=== PATIENT | male | born 1960 | race Caucasian/White ===

== ENCOUNTER 2019-08-10 07:17 | Inpatient (IN) | payer BC, SELFPAY ==
[~2019-08-10] VITALS: Ht 167.6 cm; Wt 81.6 kg
[2019-08-10 07:17] VITALS: BP_SYST 130
--- NOTE | 2019-08-10 07:54 | NUR ---
ambulated to ed #5
[2019-08-10] MEDS ORDERED: ALBUTEROL SULFATE 0.083% 2.5 MG/3 ML VIAL.NEB INH ONE (08:15)
--- NOTE | 2019-08-10 08:26 | NUR ---
PT A WALK IN FROM HOME. PT STATED HE IS COVID 19 POSTIVE TESTED [place] [facility] [place]. HIS PMD HAS HIM ON LEVOQUIN. PT WAS FEELING SOB WITH COUGH. 02 SAT ON RA IS 94-95%. RT IS GIVEN PT BREATHING TX NOW. O2 SAT IS 100%
[2019-08-10 08:40] LABS: BASOPHILS % (AUTO) 0.2 % (0.0-2.0); EOSINOPHILS % (AUTO) 0.2 % (0.0-4.0); HEMATOCRIT 44.7 % (36-54); HEMOGLOBIN 15.4 g/dL (14.0-18.0); LYMPHOCYTES # (AUTO) 3.5 K/uL (1.0-5.5); LYMPHOCYTES % (AUTO) 34.1 % (20.5-51.5); MEAN CORPUSCULAR HEMOGLOBIN 30 pg (27-31); MEAN CORPUSCULAR HGB CONC 35 % (32-36); MEAN CORPUSCULAR VOLUME 86 fL (79.0-98.0); MONOCYTES # (AUTO) 0.5 K/uL (0.0-1.0); MONOCYTES % (AUTO) 4.9 % (1.7-9.3); NEUTROPHILS # (AUTO) 6.1 K/uL (1.8-7.7); NEUTROPHILS % (AUTO) 60.6 % (40.0-70.0); PLATELET COUNT (AUTO) 158 K/uL (130-430); RED CELL DISTRIBUTION WIDTH 13.3 % (9.0-15.0); WHITE BLOOD COUNT (AUTO) 10.2 K/uL (4.8-10.8)
[2019-08-10 08:53] LABS: INR 1.1 (0.80-1.20)
--- NOTE | 2019-08-10 09:11 | NUR ---
PT HAS RECEIVED BREATHING TX. HOB IS AT 45 DEGREES . PT HAS N95 MASK ON GIVEN BY RN. AWAITING ALL LAB REPORTS AND ADDITIONAL MD ORDERS.
[2019-08-10 09:18] LABS: CALCIUM 8.6 mg/dL (8.4-11.0); CREATININE 1.23 mg/dL (0.55-1.30); POTASSIUM 3.5 mmol/L (3.5-5.1)
[2019-08-10 09:23] LABS: TOTAL BILIRUBIN 0.7 mg/dL (0.0-1.0)
[2019-08-10] MEDS ORDERED: NACL 0.9% 1,000 ML IV ONE (09:30)
[2019-08-10] MEDS ORDERED: ACETAMINOPHEN 500 MG TABLET PO ONE (09:30)
[2019-08-10] MEDS ORDERED: KETOROLAC TROMETHAMINE 30 MG VIAL IVP ONE (09:30)
--- NOTE | 2019-08-10 09:51 | NUR ---
IV ACCESS TO THE RIGHT AC IN ONE ATTEMPT WITH 20G.
--- NOTE | 2019-08-10 09:56 | NUR ---
O2 IS 95% ON RA . ER MD WANTS TO CALL PMD FOR ADMISSION FOR COVID PNA.
--- NOTE | 2019-08-10 10:10 | NUR ---
Patient admission orders received from Dr. West via phone. Orders entered by JUAN.
[2019-08-10] MEDS ORDERED: POTASSIUM CHLORIDE 20 MEQ/PKT PACKET PO ONE (10:15)
--- NOTE | 2019-08-10 10:30 | NUR ---
PAIN IN THE LUNGS IS IMPROVED TO 3/10. TORADOL AND TYLENOL GIVEN EARLIER. EFFECTIVE.
--- NOTE | 2019-08-10 11:17 | NUR ---
REMDESIVIR , AWAITING PHARMACY APPROVAL. ARLENE IN PHARMACY STATED SHE MUST CALL ID AND HER DIRECTOR FOR APPROVAL OF THIS DRUG.
--- NOTE | 2019-08-10 13:05 | NUR ---
RENDEZIMIR HAS STARTED, NOW THAT PHARMACY HAS APPROVED. RN NOTES THAT HR IS DOWN TO 89 AND O2 SATURATION IS IMPROVED TO 97% WITH A N95 MASK.
--- NOTE | 2019-08-10 14:10 | NUR ---
PT CONTINUES TO HOLD IN ER. RENDEZIMIR STILL INFUSING. O2 SATURATION RA 95%
--- NOTE | 2019-08-10 14:39 | NUR ---
O2 SATURATION GOES UP TO 96% ON RA WITH N95. PT IS MORE RELAXED.
--- NOTE | 2019-08-10 15:50 | NUR ---
PT CONTINUES TO HOLD IN ER. TELE ADMIT WITH COVID 19 AND PNA. PT IS SATURATING % ON RA AND IS RESTING WELL IN THE GURNEY.
[2019-08-10] MEDS ORDERED: IBRU280T PO (16:58)
[2019-08-10] MEDS ORDERED: ESCI10TA PO (16:58)
--- NOTE | 2019-08-10 17:07 | NUR ---
O2 SATURATION IS UP TO 96%. PT IS STABLE. AWAITING TELEMETRY BED.
[2019-08-10] MEDS ORDERED: DECADRON 4 MG TABLET PO ONE (17:45)
[2019-08-10] MEDS ORDERED: AZITHROMYCIN 500 MG in NS 250 ML IV SCH (18:30)
--- NOTE | 2019-08-10 18:37 | NUR ---
PT GIVEN COMMODE FOR BOWEL MOVEMENT. PT IS STABLE AND AWAITING TELE BED. O2 SAT ON RA IS 96%.
--- NOTE | 2019-08-10 19:10 | NUR ---
Report recieved from JUAN Laws for continuation of care.
--- NOTE | 2019-08-10 19:45 | NUR ---
Pt eating dinner, AxOx4, no complaints at this time.
--- NOTE | 2019-08-10 20:15 | NUR ---
As per JUAN Laws medications prior to 1900 were given.
[2019-08-10] MEDS: CHOLECALCIFEROL (VITAMIN D3) 2,000 UNIT TABLET PO SCH (22:03)
[2019-08-10] MEDS: MAGNESIUM OXIDE 400 MG TABLET PO SCH (22:03)
[2019-08-10] MEDS: FAMOTIDINE 20 MG TABLET PO SCH (22:03)
[2019-08-10] MEDS: ASCORBIC ACID 500 MG TABLET PO SCH (22:03)
--- NOTE | 2019-08-10 22:04 | NUR ---
notified of patients oral temp 102.5, Tylenol 650mg PO ordered.
[2019-08-10] MEDS ORDERED: ACETAMINOPHEN 325 MG TABLET PO PRN (22:45)
[2019-08-10] MEDS ORDERED: ACETAMINOPHEN 325 MG TABLET ONE (23:02)
--- NOTE | 2019-08-11 | NUR ---
Pt resting, symmetric chest rise and fall. No complaints at this time.
[2019-08-11] MEDS ORDERED: PIPERACILLIN/TAZOBACTAM 3.375 GM/VIAL (ZOSYN) IV ONE ×4 (00:31→18:56)
[2019-08-11] MEDS: PIPERACILLIN/TAZO 3.375/DEX-IS 50 ML IV SCH ×4 (00:36→18:00)
--- NOTE | 2019-08-11 02:27 | NUR ---
Pt AxOx3, pt waiting for tele bed. No complaints at this time.
--- NOTE | 2019-08-11 03:26 | NUR ---
Pt had bowel movement at bedside commode. New urinal and commode liner placed. Pt has no complaints.
[2019-08-11 04:57] LABS: BASOPHILS % (AUTO) 0.3 % (0.0-2.0); EOSINOPHILS # (AUTO) 0.1 K/uL (0.0-0.4); EOSINOPHILS % (AUTO) 0.8 % (0.0-4.0); HEMATOCRIT 40.6 % (36-54); HEMOGLOBIN 13.9 g/dL (14.0-18.0); LYMPHOCYTES # (AUTO) 2.9 K/uL (1.0-5.5); LYMPHOCYTES % (AUTO) 35.8 % (20.5-51.5); MEAN CORPUSCULAR HEMOGLOBIN 30 pg (27-31); MEAN CORPUSCULAR HGB CONC 34 % (32-36); MEAN CORPUSCULAR VOLUME 88 fL (79.0-98.0); MONOCYTES # (AUTO) 0.5 K/uL (0.0-1.0); MONOCYTES % (AUTO) 6.6 % (1.7-9.3); NEUTROPHILS # (AUTO) 4.6 K/uL (1.8-7.7); NEUTROPHILS % (AUTO) 56.5 % (40.0-70.0); PLATELET COUNT (AUTO) 135 K/uL (130-430); RED BLOOD CELL COUNT(AUTO) 4.63 MIL/uL (4.2-6.2); RED CELL DISTRIBUTION WIDTH 13.1 % (9.0-15.0); WHITE BLOOD COUNT (AUTO) 8.2 K/uL (4.8-10.8)
[2019-08-11 05:15] LABS: ALBUMIN 2.6 g/dL (3.4-4.8); CREATININE 0.89 mg/dL (0.55-1.30); POTASSIUM 3.8 mmol/L (3.5-5.1); TOTAL BILIRUBIN 0.5 mg/dL (0.0-1.0)
--- NOTE | 2019-08-11 05:30 | NUR ---
Pt resting, symmetric chest rise and fall. No complaints at this time.
--- NOTE | 2019-08-11 06:36 | NUR ---
Pt AxOx3, no respiratory distress. No new complaints. Zoysn started ay 0636.
--- NOTE | 2019-08-11 07:00 | NUR ---
Assumed care of patient, report received from JUAN Bradshaw. Pt currently resting in bed, v/s stable. Diet tray ordered. Contacted pharmacy for daily medications.
[2019-08-11] MEDS: AZITHROMYCIN 500 MG in NS 250 ML IV SCH (09:03)
[2019-08-11] MEDS: CHOLECALCIFEROL (VITAMIN D3) 2,000 UNIT TABLET PO SCH ×2 (09:04→21:38)
[2019-08-11] MEDS: MAGNESIUM OXIDE 400 MG TABLET PO SCH ×2 (09:04→21:37)
[2019-08-11] MEDS: DECADRON 4 MG TABLET PO SCH ×3 (09:04→21:37)
[2019-08-11] MEDS ORDERED: AZITHROMYCIN 500 MG/VIAL (ZITHROMAX) IV ONE (09:04)
[2019-08-11] MEDS: FAMOTIDINE 20 MG TABLET PO SCH ×2 (09:04→21:37)
[2019-08-11] MEDS: ASCORBIC ACID 500 MG TABLET PO SCH ×2 (09:04→21:37)
[2019-08-11] MEDS: CITALOPRAM HYDROBROMIDE 20 MG TABLET PO SCH (09:06)
--- NOTE | 2019-08-11 15:14 | NUR ---
Patient will be admitted to care of Dr. West. Admitted to Tele unit. Will go to room 123B. Belongings list completed. Complete and up to date summary report printed. SBAR report to be given at bedside with opportunity for questions. IV patent, antiobiotics currently infusing.
--- NOTE | 2019-08-11 15:35 | NUR ---
ADMIT NOTE Received pt from ER to the floor with a diagnosis of COVID PNA. Admission process initiated. patient oriented to pain management, safety and call light-teach back done.
--- NOTE | 2019-08-11 15:38 | NUR ---
BELONGINGS/ MEDICATIONS MEDICATIONS NOT BROUGHT TO PHARM DUE TO CONTAMINATION OF COVID. VERBALIZED TO PT NOT TO TAKE MEDICATIONS AND PHARM WILL PROVIDE MEDICATIONS, PT VERBALIZED UNDERSTANDING.
--- NOTE | 2019-08-11 15:38 | NUR ---
CONSULTATION PAGED REASON FOR CONSULTATION:COVID-19, PNA WAS CONSULT CALLED?T PERSON WHO WAS NOTIFIED:SREE CONSULTING PHYSICIAN:ZACHARY MATTHEWS SPECIAL EDUCATION SECRETARY SPECIALTY:INFECTIOUS DIESASE SPECIAL EDUCATION SECRETARY PHONE NUMBER:[phone] REQUESTING PHYSICIAN:JEFF DALLAS
--- NOTE | 2019-08-11 16:00 | NUR ---
PT ASKED WHY MEDICATION IMBRUVICA WAS BEING HELD. SPOKE TO DR. DELONG REGARDING PT'S HOME MED IMBRUVICA, MEDICATION CAN DECREASE WBC. NO NEW ORDERS RECEIVED.
[2019-08-11 16:23] VITALS: BP_SYST 153
--- NOTE | 2019-08-11 18:45 | NUR ---
CLOSING NOTES/ MEDICATION MEDICATION ADMINISTERED ORDERED PER MD, EDUCATION GIVEN, TOLERATED WELL. PT AWAKE, ALERT, AND ORIENTED. EATING DINNER SITTING UP, HOB ELEVATED. PT HAS DRY COUGH. NO ACUTE DISTRESS NOTED. IV LINE INTACT AND PATENT, NO SIGNS OF INFILTRATION NOTED. BED LOCKED AND IN LOWEST POSITION. ALL NEEDS MET. CALL LIGHT IN REACH. FALL AND ASPIRATION AND ISOLATION PRECAUTIONS IN PLACE. WILL ENDORSE TO NOC NURSE.
[2019-08-11 19:25] LABS: BILIRUBIN,URINE NEGATIVE (NEGATIVE); BLOOD, URINE NEGATIVE (NEGATIVE); CLARITY/URINE CLEAR (CLEAR); COLOR,URINE YELLOW (YELLOW); GLUCOSE,URINE NEGATIVE (NEGATIVE); KETONES,URINE TRACE (NEGATIVE); LEUKOCYTE ESTERASE ,URINE NEGATIVE (NEGATIVE); NITRITE, URINE NEGATIVE (NEGATIVE); PROTEIN URINE NEGATIVE (NEGATIVE); UROBILINOGEN,URINE 0.2 (0.2-1.0)
--- NOTE | 2019-08-11 19:30 | NUR ---
CHANGE OF SHIFT; pt. resting when received., talked thru phone communication, denies any discomfort at this time. still with occ. bouts of non productive cough. on contact isolation fro Covid. instructed to call for help and verbalized understanding.
--- NOTE | 2019-08-11 20:30 | NUR ---
NOTES: pt. resting and watching tv. when checked. call light at bedside.
[2019-08-11 21:15] VITALS: BP_SYST 147
--- NOTE | 2019-08-11 21:40 | NUR ---
NOTES: due po meds taken. IV tko via rt. antecubital. repositioned self for comfort. pt. instructed on how to unplug IV cable whenever he wants to go restroom. on drupal web developer and shows sinus rhythm.
--- NOTE | 2019-08-11 23:41 | NUR ---
NOTES: IV pump keeps alarming, rechecked site, flushed and re tape with transparent dressing.
--- NOTE | 2019-08-12 00:30 | NUR ---
NOTES: IV disconnected after IV antibiotic, pt. could not sleep, keeps alarming. needs attended. call light within reach. cardiac pattern unchanged.
--- NOTE | 2019-08-12 02:38 | NUR ---
NOTES: pt. sleeping when checked. no complaints manifested. call light within reach.
--- NOTE | 2019-08-12 05:04 | NUR ---
NOTES; pt. still asleep. no distress. continue to monitor. call light at bedside.
[2019-08-12 06:00] VITALS: BP_SYST 158
--- NOTE | 2019-08-12 06:00 | NUR ---
NOTES: pt. sleeping and awakened for IV antibiotic. no complaints noted except being chilly, did not call for blanket, repositioned self for comfort.
[2019-08-12] MEDS: PIPERACILLIN/TAZO 3.375/DEX-IS 50 ML IV SCH ×2 (06:10)
--- NOTE | 2019-08-12 07:15 | NUR ---
OPENING NOTES PT AWAKE, ALERT, AND ORIENTED. WATCHING TV IN BED, HOB ELEVATED. IV LINE INTACT AND PATENT, NO SIGNS OF INFILTRATION NOTED. NO ACUTE DISTRESS NOTED. BED LOCKED AND IN LOWEST POSITION. ALL NEEDS MET. CALL LIGHT IN REACH. FALL AND ASPIRATION AND ISOLATION PRECAUTIONS IN PLACE. CONTINUE TO MONITOR.
[2019-08-12 08:00] VITALS: BP_SYST 142
[2019-08-12] MEDS: FAMOTIDINE 20 MG TABLET PO SCH ×2 (09:32→21:00)
[2019-08-12] MEDS: ASCORBIC ACID 500 MG TABLET PO SCH ×2 (09:32→21:00)
[2019-08-12] MEDS: AZITHROMYCIN 500 MG in NS 250 ML IV SCH (09:32)
[2019-08-12] MEDS: DECADRON 4 MG TABLET PO SCH (09:32)
[2019-08-12] MEDS: CHOLECALCIFEROL (VITAMIN D3) 2,000 UNIT TABLET PO SCH ×2 (09:32→21:00)
[2019-08-12] MEDS: CITALOPRAM HYDROBROMIDE 20 MG TABLET PO SCH (09:32)
[2019-08-12] MEDS: MAGNESIUM OXIDE 400 MG TABLET PO SCH ×2 (09:32→21:00)
--- NOTE | 2019-08-12 09:32 | NUR ---
ROUTINE MEDS HOB ELEVATED, PT SITTING UP IN BED EATING BREAKFAST. ROUTINE MEDS ADMINISTERED ORDERED PER MD, EDUCATION GIVEN, TOLERATED WELL, PT VERBALIZED UNDERSTANDING. NO ACUTE DISTRESS NOTED. ALL NEEDS MET. CALL LIGHT IN REACH. FALL AND ASPIRATION AND ISOLATION PRECAUTIONS IN PLACE. CONTINUE TO MONITOR.
--- NOTE | 2019-08-12 11:00 | NUR ---
ROUNDS PT AWAKE, ALERT, AND ORIENTED. WATCHING TELEVISION IN BED. NO ACUTE DISTRESS NOTED. ALL NEEDS MET. CALL LIGHT IN REACH. CONTINUE TO MONITOR.
[2019-08-12 11:30] LABS: ALBUMIN 2.6 g/dL (3.4-4.8); BILIRUBIN,DIRECT 0.2 mg/dL (0.0-0.3); CREATININE 1.16 mg/dL (0.55-1.30); TOTAL BILIRUBIN 0.5 mg/dL (0.0-1.0)
[2019-08-12 12:00] VITALS: BP_SYST 147
[2019-08-12] MEDS ORDERED: ENOXAPARIN SODIUM 40 MG/0.4 ML SYRINGE SUBCUT ONE (12:00)
--- NOTE | 2019-08-12 12:25 | NUR ---
Dietitian Recommendations *Recommend Ensure Clear BID. ONS will provide additional 480 kcal and 16gm protein daily. *Continue regular diet. Please see Nutritional Assessment for details. KATARINA, SAMANTHA
[2019-08-12] MEDS: cefTRIAXone 1 GM in D5W 50 ML IV SCH (12:34)
--- NOTE | 2019-08-12 12:34 | NUR ---
ROUTINE MEDS AND LUNCH GIVEN ROUTINE MEDS ADMINISTERED ORDERED PER MD, EDUCATION GIVEN, PT VERBALIZED UNDERSTANDING, TOLERATED WELL. HOB ELEVATED, SITTING UP IN BED, EATING LUNCH, TOLERATING WELL. NO ACUTE DISTRESS NOTED. ALL NEEDS MET. CALL LIGHT IN REACH. CONTINUE TO MONITOR.
--- NOTE | 2019-08-12 14:23 | NUR ---
ROUNDS PT SITTING UP, WATCHING TV. NO ACUTE DISTRESS NOTED. ALL NEEDS MET. CALL LIGHT IN REACH. CONTINUE TO MONITOR.
[2019-08-12 16:00] VITALS: BP_SYST 160
--- NOTE | 2019-08-12 16:13 | NUR ---
ROUNDS PT SITTING UP IN BED, WATCHING TV. DRY COUGH NOTED. NO ACUTE DISTRESS NOTED. ALL NEEDS MET. CALL LIGHT IN REACH. CONTINUE TO MONITOR.
[2019-08-12] MEDS ORDERED: cloNIDine HCL 0.1 MG TABLET PO PRN (18:30)
--- NOTE | 2019-08-12 18:45 | NUR ---
CLOSING NOTES/ SEEN BY DR. SIMEON AND SPOKE TO DR. SIMEON PT AWAKE, ALERT, AND ORIENTED. WATCHING TV IN BED AND EATING DINNER, HOB ELEVATED. IV LINE INTACT AND PATENT, NO SIGNS OF INFILTRATION NOTED. NO ACUTE DISTRESS NOTED. PT HAS DRY COUGH. BED LOCKED AND IN LOWEST POSITION. ALL NEEDS MET. CALL LIGHT IN REACH. FALL AND ASPIRATION AND ISOLATION PRECAUTIONS IN PLACE. WILL ENDORSE TO NOC NURSE. SPOKE TO DR. SIMEON REGARDING PT'S ELEVATED BP, MD PUT IN PRN ORDERS FOR BP.
--- NOTE | 2019-08-12 19:45 | NUR ---
RECEIVED REPORT FROM JUAN HUTTON. SINUS RHYTHM ON THE TELE MONITOR. NO S/S OF DISTRESS AT THIS TIME, NO OTHER NEEDS AT THIS TIME, WILL CONTINUE TO MONITOR.
[2019-08-12 20:50] VITALS: BP_SYST 144
--- NOTE | 2019-08-12 21:00 | NUR ---
MEDICATIONS/ROUNDS Patient resting in bed, AAOx4, breathing evenly and nonlabored on room air. Patient's BP elevated at 144/92, denies any headaches, pain, s/s of high BP. Patient has an IV on the right AC 20g SL, flushed, patent and benign, no s/s of infiltration or infection noted at this time. Educated patient on plan of care, fall/safety/isolation precautions, call light system, patient stated understanding with return demonstration. Educated patient on due medications, patient stated understanding. Administered medications, patient tolerated them well. Bed is locked and at lowest position, will continue to monitor.
--- NOTE | 2019-08-12 22:00 | NUR ---
ROUNDS Patient resting in bed, awake, breathing evenly and nonlabored on room air. Educated patient regarding Covid test, patient stated understanding. Patient said he was tested on [facility] ([address]) back on 07/31/19 and tested positive. Covid test was done earlier, patient tolerated it well. No other needs at this time. Fall/safety/isolation precautions, will continue to monitor.
[2019-08-13 00:50] VITALS: BP_SYST 147
--- NOTE | 2019-08-13 00:50 | NUR ---
ROUNDS Patient resting in bed, awake, breathing evenly and nonlabored on room air. Patient's BP elevated at 147/94, denies any headaches, pain, s/s of high BP. Patient asked for some water which was provided. No other needs at this time. Fall/safety/isolation precautions, will continue to monitor.
--- NOTE | 2019-08-13 02:23 | NUR ---
SR ON THE TELE MONITOR, NO S/S OF DISTRESS AT THIS TIME, NO OTHER NEEDS AT THIS TIME, WILL CONTINUE TO MONITOR.
--- NOTE | 2019-08-13 04:15 | NUR ---
SR ON THE TELE MONITOR, NO S/S OF DISTRESS AT THIS TIME, NO OTHER NEEDS AT THIS TIME, WILL CONTINUE TO MONITOR THE PATIENT.
--- NOTE | 2019-08-13 06:20 | NUR ---
CLOSING NOTES Patient resting in bed, awake, breathing evenly and nonlabored on room air. Trash and linen basket emptied and replaced. No s/s of distress at this time, no other needs at this time. Needs met throughout the shift. Fall/safety/isolation precautions, will endorse care to morning shift RN.
--- NOTE | 2019-08-13 07:15 | NUR ---
OPENING NOTES PT AWAKE, ALERT, AND ORIENTED. IV LINE NOT PATENT, WILL RE-INSERT. NO ACUTE DISTRESS NOTED. BED LOCKED AND IN LOWEST POSITION. ALL NEEDS MET. CALL LIGHT IN REACH. FALL AND ASPIRATION AND ISOLATION PRECAUTIONS IN PLACE. CONTINUE TO MONITOR.
[2019-08-13 07:44] LABS: HEMATOCRIT 41.6 % (36-54); HEMOGLOBIN 14.1 g/dL (14.0-18.0); LYMPHOCYTES # (AUTO) 2.9 K/uL (1.0-5.5); LYMPHOCYTES % (AUTO) 28.5 % (20.5-51.5); MEAN CORPUSCULAR HEMOGLOBIN 30 pg (27-31); MEAN CORPUSCULAR HGB CONC 34 % (32-36); MEAN CORPUSCULAR VOLUME 87 fL (79.0-98.0); MONOCYTES # (AUTO) 0.5 K/uL (0.0-1.0); MONOCYTES % (AUTO) 4.8 % (1.7-9.3); NEUTROPHILS # (AUTO) 6.9 K/uL (1.8-7.7); NEUTROPHILS % (AUTO) 66.7 % (40.0-70.0); PLATELET COUNT (AUTO) 189 K/uL (130-430); RED BLOOD CELL COUNT(AUTO) 4.78 MIL/uL (4.2-6.2); RED CELL DISTRIBUTION WIDTH 13.2 % (9.0-15.0); WHITE BLOOD COUNT (AUTO) 10.3 K/uL (4.8-10.8)
[2019-08-13 08:00] VITALS: BP_SYST 148
[2019-08-13 08:16] LABS: ALBUMIN 2.6 g/dL (3.4-4.8); C-REACTIVE PROTEIN QUANT 3.5 mg/dL (0-0.5); CALCIUM 8.8 mg/dL (8.4-11.0); CREATININE 0.86 mg/dL (0.55-1.30); POTASSIUM 4.1 mmol/L (3.5-5.1); TOTAL BILIRUBIN 0.5 mg/dL (0.0-1.0)
--- NOTE | 2019-08-13 08:45 | NUR ---
ROUTINE MEDS ROUTINE MEDS ADMINISTERED ORDERED PER MD, EDUCATION GIVEN, TOLERATED WELL. NO ACUTE DISTRESS NOTED. ATTEMPTED IV RE-INSERTION. UNSUCCESSFUL AFTER TWO ATTEMPTS, WILL CALL ANOTHER RN WHEN AVAILABLE TO ATTEMPT. ALL NEEDS MET. CALL LIGHT IN REACH. CONTINUE TO MONITOR.
[2019-08-13] MEDS: FAMOTIDINE 20 MG TABLET PO SCH ×2 (09:00→20:38)
[2019-08-13] MEDS: ASCORBIC ACID 500 MG TABLET PO SCH ×2 (09:00→20:38)
[2019-08-13] MEDS: AZITHROMYCIN 500 MG in NS 250 ML IV SCH ×2 (09:00→11:00)
[2019-08-13] MEDS: DECADRON 4 MG TABLET PO SCH (09:00)
[2019-08-13] MEDS: MAGNESIUM OXIDE 400 MG TABLET PO SCH ×2 (09:00→20:38)
[2019-08-13] MEDS: CITALOPRAM HYDROBROMIDE 20 MG TABLET PO SCH (09:00)
[2019-08-13] MEDS: ENOXAPARIN SODIUM 40 MG/0.4 ML SYRINGE SUBCUT SCH (09:00)
[2019-08-13] MEDS: CHOLECALCIFEROL (VITAMIN D3) 2,000 UNIT TABLET PO SCH ×2 (09:00→20:38)
--- NOTE | 2019-08-13 11:00 | NUR ---
IV RE-INSERTION IV LINE UNABLE TO FLUSH. RESTARTED ON RIGHT AC 20G. Successful after 2 attempts. JUAN COX INSERTED THIRD SUCCESSFUL IV ATTEMPT. Resumed ZITHRO ABX MEDICATION. Will observe for any signs of infiltration.
[2019-08-13 12:00] VITALS: BP_SYST 125
--- NOTE | 2019-08-13 12:00 | NUR ---
GAVE PT LUNCH AND VITAL SIGNS TAKEN AND STABLE.
[2019-08-13] MEDS: cefTRIAXone 1 GM in D5W 50 ML IV SCH (14:00)
--- NOTE | 2019-08-13 14:00 | NUR ---
ROUTINE MEDS ADMINISTERED ORDERED PER MD, EDUCATION GIVEN, TOLERATED WELL. NO ACUTE DISTRESS NOTED. ALL NEEDS MET. CALL LIGHT IN REACH. CONTINUE TO MONITOR.
[2019-08-13 16:00] VITALS: BP_SYST 120
--- NOTE | 2019-08-13 16:00 | NUR ---
VITAL SIGNS TAKEN AND STABLE.
--- NOTE | 2019-08-13 18:45 | NUR ---
CLOSING NOTES PT AWAKE, ALERT, AND ORIENTED WATCHING TV IN BED. DRY COUGH NOTED. IV LINE INTACT AND PATENT, NO SIGNS OF INFILTRATION NOTED. NO ACUTE DISTRESS NOTED. BED LOCKED AND IN LOWEST POSITION. ALL NEEDS MET. CALL LIGHT IN REACH. FALL AND ASPIRATION AND ISOLATION PRECAUTIONS IN PLACE. WILL ENDORSE TO NOC NURSE.
--- NOTE | 2019-08-13 19:40 | NUR ---
RECEIVED REPORT FROM JUAN HUTTON. SINUS RHYTHM ON THE TELE MONITOR. NO S/S OF DISTRESS AT THIS TIME, NO OTHER NEEDS AT THIS TIME, WILL CONTINUE TO MONITOR THE PATIENT.
[2019-08-13 20:30] VITALS: BP_SYST 139
--- NOTE | 2019-08-13 20:38 | NUR ---
MEDICATIONS/ROUNDS Patient resting in bed, AAOx4, breathing evenly and nonlabored on room air. Vital signs stable. Patient has an IV on the right AC 20g SL, flushed, patent and benign, no s/s of infiltration or infection noted at this time. Educated patient on plan of care, fall/safety/isolation precautions, call light system, patient stated understanding with return demonstration. Educated patient on due medications, patient stated understanding. Administered medications, patient tolerated them well. Bed is locked and at lowest position, will continue to monitor.
--- NOTE | 2019-08-13 22:30 | NUR ---
SR ON THE TELE MONITOR, NO S/S OF DISTRESS AT THIS TIME, NO OTHER NEEDS AT THIS TIME, WILL CONTINUE TO MONITOR.
[2019-08-13] MEDS ORDERED: LOPERAMIDE HCL 2 MG CAPSULE PO ONE (23:00)
[2019-08-13] MEDS ORDERED: PROMETHAZINE-DM 6.25 MG-15 MG/5 ML UDC PO PRN (23:00)
--- NOTE | 2019-08-14 | NUR ---
MEDICATIONS/ROUNDS Patient resting in bed, awake, breathing evenly and nonlabored on room air. Vital signs stable. Was able to obtain medication orders from Dr. West earlier for diarrhea and for a cough suppressant. Educated patient on PRN medications, patient stated understanding. Patient chose to take Imodium for diarrhea, complained of 5 times loose stools 08/13/2019. Administered medication, patient tolerated it well. No other needs at this time. Fall/safety/isolation precautions, will continue to monitor.
[2019-08-14 00:01] VITALS: BP_SYST 142
--- NOTE | 2019-08-14 02:20 | NUR ---
SR ON THE TELE MONITOR, NO S/S OF DISTRESS AT THIS TIME, NO OTHER NEEDS AT THIS TIME, WILL CONTINUE TO MONITOR THE PATIENT.
--- NOTE | 2019-08-14 04:20 | NUR ---
SR ON THE TELE MONITOR, NO S/S OF DISTRESS AT THIS TIME, NO OTHER NEEDS AT THIS TIME, WILL CONTINUE TO MONITOR THE PATIENT.
--- NOTE | 2019-08-14 06:30 | NUR ---
CLOSING NOTES Patient resting in bed, eyes closed, breathing evenly and nonlabored on room air. No s/s of distress at this time, no other needs at this time. Needs met throughout the shift. Fall/safety/isolation precautions, will endorse care to morning shift RN.
--- NOTE | 2019-08-14 07:45 | NUR ---
OPENING NOTES PT AWAKE, ALERT, AND ORIENTED. IV LINE INTACT AND PATENT, NO SIGNS OF INFILTRATION NOTED. NONLABORED BREATHING NOTED ON ROOM AIR, DRY COUGH NOTED. NO ACUTE DISTRESS NOTED. BED LOCKED AND IN LOWEST POSITION. ALL NEEDS MET. CALL LIGHT IN REACH. FALL AND ASPIRATION AND ISOLATION PRECAUTIONS IN PLACE. CONTINUE TO MONITOR.
[2019-08-14 08:00] VITALS: BP_SYST 149
[2019-08-14] MEDS: AZITHROMYCIN 500 MG in NS 250 ML IV SCH (08:26)
[2019-08-14] MEDS: ASCORBIC ACID 500 MG TABLET PO SCH (08:26)
[2019-08-14] MEDS: CHOLECALCIFEROL (VITAMIN D3) 2,000 UNIT TABLET PO SCH (08:26)
[2019-08-14] MEDS: MAGNESIUM OXIDE 400 MG TABLET PO SCH (08:26)
[2019-08-14] MEDS: DECADRON 4 MG TABLET PO SCH (08:26)
[2019-08-14] MEDS: FAMOTIDINE 20 MG TABLET PO SCH (08:26)
[2019-08-14] MEDS: CITALOPRAM HYDROBROMIDE 20 MG TABLET PO SCH (08:26)
[2019-08-14] MEDS: ENOXAPARIN SODIUM 40 MG/0.4 ML SYRINGE SUBCUT SCH (08:26)
--- NOTE | 2019-08-14 08:36 | NUR ---
ROUTINE MEDS ROUTINE MEDS ADMINISTERED ORDERED PER MD, EDUCATION GIVEN, TOLERATED WELL. NO ACUTE DISTRESS NOTED. ALL NEEDS MET. CALL LIGHT IN REACH. CONTINUE TO MONITOR.
[2019-08-14 10:52] VITALS: BP_SYST 141
--- NOTE | 2019-08-14 11:00 | NUR ---
SPOKE TO DR. TERESA AT NURSE'S STATION. NO NEW ORDERS RECEIVED, STATED OK TO D/C.
--- NOTE | 2019-08-14 11:23 | NUR ---
SPOKE TO DR. DELONG, STATED IT WAS OK WITH DR. TERESA TO D/C PT. DR. DELONG STATED OK TO D/C PT AND HAVE DR. TERESA WRITE PRESCRIBED MEDICATIONS. WILL SPEAK TO DR. TERESA.
--- NOTE | 2019-08-14 11:30 | NUR ---
SPOKE TO DR. TERESA REGARDING PT'S WRITTEN MEDICATIONS, STATED UNABLE TO WRITE AT THIS TIME, BUT TO HAVE PT CALL HIS OFFICE FOR PRESCRIBED MEDICATIONS, WILL RELAY MESSAGE TO PATIENT AND DR. DELONG.
--- NOTE | 2019-08-14 11:35 | NUR ---
STATED TO PATIENT TO CALL DR. TERESA FOR PRESCRIBED MEDICATIONS, STATED TO PT HE CAN WAIT UNTIL DR. DELONG COMES TO FINALIZE MEDICATIONS, PT STATES HE WANTS TO LEAVE SOON POSSIBLE. PT VERBALIZED UNDERSTANDING, KNOWING TO CALL DR. TERESA'S OFFICE FOR PRESCRIBED MEDICATIONS.
--- NOTE | 2019-08-14 11:46 | NUR ---
PT HAVING DRY COUGH, REQUESTED FOR COUGH MEDICINE, ADMINISTERED PRN MEDS ORDERED PER MD, EDUCATION GIVEN, TOLERATED WELL.
--- NOTE | 2019-08-14 12:20 | NUR ---
D/C Patient Patient given medication reconciliation form and D/C instructions. Exit Care provided. Patient verbalized understanding. MD discussed with patient the results and treatment provided. Spoke with Dr. Chu on the way out and gave instructions, pt verbalized understanding. Ambulatory with steady gait for discharge to home. Patient in stable condition, ID band removed. IV catheter removed, intact and dressing applied, no active bleeding. Patient educated on pain management. All belongings sent with patient.
== END 2019-08-14 12:15 | disposition home or self-care (01) | DRG 871 ==
LOC: SED 07:17 → EEVIPCON 10:12 → STU 10:12
PROVIDERS: ADMIT Internal Medicine; ATTEND Internal Medicine
DX: A41.89 Other specified sepsis (principal); J12.89 Other viral pneumonia; U07.1 COVID-19; E87.1 Hypo-osmolality and hyponatremia; E44.1 Mild protein-calorie malnutrition; C91.10 Chronic lymphocytic leukemia of B-cell type not having achieved remission; R09.02 Hypoxemia; F32.9 Major depressive disorder, single episode, unspecified; Z79.899 Other long term (current) drug therapy; Z68.29 Body mass index [BMI] 29.0-29.9, adult
CPT/HCPCS: 36415; 71045; 80053; 80076; 81003; 82565-TC; 82728; 83605; 83880; 84484; 85025; 85379; 85610-TC; 86140; 86710; 86886; 86900; 86901; 87040-TC; 93005; 94640; 96361; 96365; 96366; 96375; 99291; G0378; J0456; J0696; J1650; J1885; J2543; J7030; J7050; J7060; J7613; J8540; U0003-CS